=== PATIENT | male | born 1965 | race Caucasian/White ===

== ENCOUNTER 2021-01-29 22:20 | Emergency (ER) | payer OTHER ==
[~2021-01-29] VITALS: Ht 180.3 cm; Wt 68.2 kg
[2021-01-29 22:36] VITALS: BP 122/89
[2021-01-29] MEDS ORDERED: HYDROcodone/acetaminophen 10/325mg tab PO ONE (23:35)
[2021-01-29] MEDS ORDERED: ketorolac trometh inj. 60 MG/2 ML VIAL IM ONE (23:35)
[2021-01-29] MEDS ORDERED: HYDR-3965 PO (23:36)
== END 2021-01-29 23:44 | disposition home or self-care (01) ==
LOC: ER 22:21
DX: M25.511 Pain in right shoulder (principal); R07.81 Pleurodynia; M19.90 Unspecified osteoarthritis, unspecified site; Z79.899 Other long term (current) drug therapy
CPT/HCPCS: 73030; 96372; 99283; J1885